=== PATIENT | male | born 1940 | race African-American/Black ===

== ENCOUNTER 2025-01-03 17:29 | Inpatient (IN) | payer MEDICARE, OTHER, BC ==
[~2025-01-03] VITALS: Ht 177.8 cm; Wt 1.2 kg
[2025-01-03] MEDS: IPRATROPIUM BROMIDE 0.5 MG/2.5 ML NEB SOLUTION NEB ONE (17:47)
[2025-01-03] MEDS: ALBUTEROL SULFATE 2.5 MG/0.5 ML NEB SOLUTION NEB ONE (17:47)
[2025-01-03 17:51] VITALS: PULSE 143; RESP 24; O2SAT 95
[2025-01-03 17:52] VITALS: PULSE 143; RESP 28; O2SAT 96
[2025-01-03 17:54] LABS: BASOPHILS % (AUTO) 0.6 % (0.0-2.0); EOSINOPHILS % (AUTO) 7.3 % (1.0-6.0); HEMATOCRIT 48.7 % (41-53); HEMOGLOBIN 15.9 g/dL (13.5-17.5); LYMPHOCYTES # (AUTO) 5.3 K/uL (1.0-4.8); LYMPHOCYTES % (AUTO) 40.8 % (22.0-44.0); MEAN CORPUSCULAR HEMOGLOBIN 25.6 pg (26.0-34.0); MEAN CORPUSCULAR HGB CONC 32.7 G/dL (31.0-37.0); MEAN CORPUSCULAR VOLUME 78 fL (80-100); MONOCYTES # (AUTO) 1.1 K/uL (0.1-1.0); MONOCYTES % (AUTO) 8.5 % (2.0-9.0); NEUTROPHILS # (AUTO) 5.5 K/uL (1.8-7.7); NEUTROPHILS % (AUTO) 42.8 % (40.0-70.0); PLATELET COUNT (AUTO) 199 K/uL (150-450); RED BLOOD CELL COUNT(AUTO) 6.22 MIL/uL (4.50-5.90); RED CELL DISTRIBUTION WIDTH 14.3 % (11.5-14.5); WHITE BLOOD COUNT (AUTO) 12.9 K/uL (4.5-11.0)
[2025-01-03 18:00] LABS: ANION GAP 10 mmol/L (8-16); CALCIUM, TOTAL 8.6 mg/dL (8.8-10.5); CARBON DIOXIDE 28 mmol/L (22-29); CHLORIDE 105 mmol/L (98-107); CREATININE 1.18 mg/dL (0.60-1.30); GLOMERULAR FILTR. RATE CALC > 60 mL/min (>60); GLUCOSE,RANDOM 264 mg/dL (70-110); POTASSIUM 4.3 mmol/L (3.5-5.1); SODIUM SERUM 143 mmol/L (136-145); UREA NITROGEN, BLOOD 18 mg/dL (7-18)
[2025-01-03] MEDS: ETOMIDATE 2 MG/ML 10 ML VIAL IVP ONE (18:05)
[2025-01-03] MEDS: ROCURONIUM BROMIDE 10 MG/ML 5 ML VIAL IVP ONE (18:05)
[2025-01-03 18:07] LABS: CREATINE KINASE, TOTAL ONLY 101 U/L (39-308)
[2025-01-03] MEDS ORDERED: PROPOFOL 1000 MG/ISO-OSM 100 ML ONE (18:09)
[2025-01-03] MEDS ORDERED: IOHEXOL 300 MG/ML 100 ML VIAL ONE ×2 (18:10→23:54)
[2025-01-03 18:12] LABS: B-TYPE NATRIURETIC PEPTIDE 22 pg/mL (0-100)
[2025-01-03 18:14] LABS: TROPONIN I-HIGH SENSITIVITY 24 ng/L (<76)
[2025-01-03] MEDS ORDERED: IOHEXOL 350 MG/ML 100 ML VIAL ONE ×2 (18:14→18:24)
[2025-01-03] MEDS: FUROSEMIDE 40 MG/4 ML VIAL IVP ONE (18:15)
[2025-01-03] MEDS ORDERED: SODIUM CHLORIDE 0.9% 100 ML ONE (18:24)
[2025-01-03] MEDS ORDERED: PROM118S5 PO (18:28)
[2025-01-03] MEDS ORDERED: AMLO5TAB66 PO (18:28)
[2025-01-03] MEDS ORDERED: LISI40TA9 PO (18:28)
[2025-01-03] MEDS ORDERED: LORA10TA7 PO (18:28)
[2025-01-03] MEDS ORDERED: ALBU18HF12 IH (18:28)
[2025-01-03 18:30] LABS: PROTHROMBIN TIME 10.6 SEC (9.4-11.6)
[2025-01-03 18:32] LABS: CHOL/HDL RATIO 3.3 (4.2-7.3)
[2025-01-03] MEDS ORDERED: HYDR25TA2 PO (18:32)
[2025-01-03 18:43] LABS: APPEARANCE,URINE CLEAR (CLEAR); BILIRUBIN,URINE NEGATIVE (NEGATIVE); COLOR,URINE LIGHT YELLOW (YELLOW); GLUCOSE, URINE (UA) 300-500 mg/dL (NEGATIVE); KETONES,URINE NEGATIVE (NEGATIVE); LEUKOCYTE ESTERASE ,URINE NEGATIVE (NEGATIVE); NITRATE,URINE NEGATIVE (NEGATIVE); OCCULT BLOOD,URINE SMALL (NEGATIVE); PROTEIN,URINE 300-600,SEE CONFIRM mg/dL (NEGATIVE); SPECIFIC GRAVITIY, URINE 1.014 (1.003-1.030); UROBILINOGEN,URINE <=1.0 mg/dL (<=1.0)
[2025-01-03 18:53] LABS: SULFOSALICYLIC ACID,URINE 1+ (Negative)
[2025-01-03 18:54] LABS: BACTERIA,URINE Rare /HPF (None Seen); RBC,URINE 0-2 /HPF (0-2); WBC,URINE 0-2 /HPF (0-5)
[2025-01-03 19:00] VITALS: PULSE 143; RESP 18; O2SAT 99
[2025-01-03] MEDS: PROPOFOL 1000 MG/ISO-OSM 100 ML IV PRN (19:15)
[2025-01-03] MEDS: LABETALOL HCL 5 MG/ML 20 ML VIAL IVP ONE (19:42)
[2025-01-03] MEDS ORDERED: NOREPINEPHRINE 8 MG/0.9 % NACL 250 ML IV ONE (19:43)
[2025-01-03 19:48] LABS: ABG BASE EXCESS -4.9 mmol/L (-2.0-3.0); ABG CARBOXYHEMOGLOBIN 0.5 % (0.5-1.5); ABG HCO3 19.7 mmol/L (21.0-28.0); ABG METHEMOGLOBIN 0.9 % (0.0-1.5); ABG OXYGEN CONTENT 23.1 mL/dL (15.0-23.0); ABG OXYGEN SATURATION 99.7 % (94.0-98.0); ABG OXYHEMOGLOBIN 98.3 % (94.0-98.0); ABG PCO2 59 mmHg (32.0-48.0); ABG TOTAL HEMOGLOBIN 16.2 G/dL (13.5-17.5); SOURCE, BLOOD GAS ARTERIAL; TEMPERATURE, FAHRENHEIT, BG 97.8 FAHREN (96.0-98.6)
[2025-01-03] MEDS: NOREPINEPHRINE 8 MG/0.9 % NACL 250 ML IV PRN (20:00)
[2025-01-03] MEDS: ASPIRIN 300 MG RECTAL SUPPOSITORY PR ONE (20:29)
[2025-01-03] MEDS ORDERED: ZOLPIDEM TARTRATE 5 MG TABLET PO PRN (20:30)
[2025-01-03] MEDS ORDERED: HYDROCODONE/ACETAMINOPHEN 5-325 MG TABLET PO PRN (20:30)
[2025-01-03] MEDS ORDERED: NOREPINEPHRINE 8 MG/0.9 % NACL 250 ML IV PRN (20:30)
[2025-01-03] MEDS ORDERED: ONDANSETRON HCL 4 MG/2 ML VIAL IVP PRN (20:30)
[2025-01-03] MEDS ORDERED: MAGNESIUM HYDROXIDE SUSPENSION 30 ML UDCUP PO PRN (20:30)
[2025-01-03] MEDS ORDERED: MORPHINE SULFATE 2 MG/ML SYRINGE IVP PRN (20:30)
[2025-01-03] MEDS ORDERED: MIDAZOLAM HCL 2 MG/2 ML VIAL ONE (20:38)
[2025-01-03] MEDS ORDERED: SODIUM CHLORIDE 0.9% 500 ML IV ONE (20:41)
[2025-01-03 20:59] LABS: TROPONIN I-HIGH SENSITIVITY 208 ng/L (<76)
[2025-01-03] MEDS: GuaiFENesin SR 600 MG ER TABLET PO SCH (21:00)
[2025-01-03] MEDS: BENZONATATE 100 MG CAPSULE PO SCH (21:00)
[2025-01-03] MEDS: DOCUSATE SODIUM 100 MG CAPSULE PO SCH (21:00)
[2025-01-03] MEDS: MIDAZOLAM HCL 2 MG/2 ML VIAL IVP ONE (21:17)
[2025-01-03 21:23] LABS: ABG BASE EXCESS -2.7 mmol/L (-2.0-3.0); ABG CARBOXYHEMOGLOBIN 0.4 % (0.5-1.5); ABG HCO3 21.4 mmol/L (21.0-28.0); ABG METHEMOGLOBIN 0.9 % (0.0-1.5); ABG OXYGEN CONTENT 23.1 mL/dL (15.0-23.0); ABG OXYGEN SATURATION 99.9 % (94.0-98.0); ABG OXYHEMOGLOBIN 98.6 % (94.0-98.0); ABG PCO2 57 mmHg (32.0-48.0); ABG PH 7.251 (7.350-7.450); ABG TOTAL HEMOGLOBIN 16.2 G/dL (13.5-17.5); PO2, ARTERIAL BG 273.6 mmHg (83.0-108.0); SOURCE, BLOOD GAS ARTERIAL; TEMPERATURE, FAHRENHEIT, BG 97.9 FAHREN (96.0-98.6)
[2025-01-03 21:33] LABS: COVID AG,FIA SOURCE NASAL SWAB
[2025-01-03 21:38] LABS: ABG PH 7.211 (7.350-7.450)
[2025-01-03 21:39] LABS: ABG A-A DIFF O2 335.5 mmHg (10-20.0); ALLEN TEST, BLOOD GAS Positive; O2 DEVICE,BLOOD GAS VENT (ROOM AIR); PEEP,BG 5 cm H2O; PO2, ARTERIAL BG 320.1 mmHg (83.0-108.0); SITE, BLOOD GAS LFT RADIAL; VT, ABG 500 ml
[2025-01-03] MEDS: CefTRIAXone 1 GM/DEXTROSE 50 ML IV SCH (21:39)
[2025-01-03 21:40] LABS: ABG A-A DIFF O2 237.9 mmHg (10-20.0); O2 DEVICE,BLOOD GAS VENT (ROOM AIR); PEEP,BG 5 cm H2O; SITE, BLOOD GAS ARTERIAL LINE; VT, ABG 500 ml
[2025-01-03 21:52] LABS: SARS-COV2 (COVID) ANTIGEN,FIA Negative (Negative)
[2025-01-03 21:53] LABS: INFLUENZA TYPE A NEGATIVE FOR TYPE A (NEGATIVE); INFLUENZA TYPE B NEGATIVE FOR TYPE B (NEGATIVE)
[2025-01-03] MEDS: FentaNYL CIT 1000MCG/0.9% NACL 100 ML IV PRN (21:56)
[2025-01-03] MEDS: AZITHROMYCIN 500 MG/NS 250 ML IV SCH (22:22)
[2025-01-03 22:40] VITALS: PULSE 87; RESP 24; O2SAT 97
[2025-01-03] MEDS ORDERED: PHENYLEPHRINE HCL IN 0.9% NACL 400 MCG/10 ML SYRINGE IVP ONE (23:15)
[2025-01-03 23:19] LABS: LACTIC ACID 2.5 mmol/L (0.4-2.0); TROPONIN I-HIGH SENSITIVITY 1427 ng/L (<76)
[2025-01-03] MEDS: PHENYLEPHRINE 200 MG/D5%-WATER 250 ML IV PRN (23:25)
[2025-01-03] MEDS ORDERED: HEPARIN SODIUM 25000 UNITS/D5W 250 ML IV PRN (23:30)
[2025-01-03] MEDS ORDERED: VERAPAMIL HCL 2.5 MG/ML 2 ML VIAL ONE (23:53)
[2025-01-03] MEDS ORDERED: SODIUM BICARBONATE 50 MEQ/50 ML VIAL ONE (23:54)
[2025-01-03] MEDS ORDERED: LIDOCAINE/PF 1% 30 ML VIAL ONE (23:54)
[2025-01-03] MEDS ORDERED: HEPARIN SODIUM 1000 UNITS/NS 1,000 ML ONE (23:54)
[2025-01-03] MEDS ORDERED: NITROGLYCERIN 50 MG/D5% WATER 250 ML ONE (23:54)
[2025-01-04] VITALS (18 sets, daily range): BP systolic 64–189; BP diastolic 59–102; PULSE 24–108; RESP 24; TEMP 98.1–98.9; O2SAT 93–99
[2025-01-04] MEDS ORDERED: HEPARIN SODIUM,PORCINE 5,000 UNITS/ML VIAL SQ SCH
[2025-01-04] MEDS: EPINEPHrine 5 MG in DEXTROSE 5%-WATER 245 ML IV PRN (00:05)
[2025-01-04] MEDS: IOHEXOL 300 MG/ML 100 ML VIAL ICOR ONE (00:56)
[2025-01-04] MEDS: LIDOCAINE 1% 30 ML/SOD BICARB 8.4% 4 ML SQ ONE (00:56)
[2025-01-04] MEDS: HEPARIN SODIUM 1000 UNITS/NS 1,000 ML IARTER ONE (00:57)
[2025-01-04] MEDS: ALBUTEROL SULFATE 2.5 MG/0.5 ML NEB SOLUTION NEB SCH (02:00)
[2025-01-04] MEDS: IPRATROPIUM BROMIDE 0.5 MG/2.5 ML NEB SOLUTION NEB SCH (02:00)
[2025-01-04] MEDS: HEPARIN SODIUM,PORCINE 1,000 UNITS/ML 10 ML VIAL IVP ONE (02:16)
[2025-01-04] MEDS: MethylPREDNISolone SOD SUCC 125 MG/2 ML VIAL IVP SCH (03:00)
[2025-01-04 04:09] LABS: ABG BASE EXCESS -5.1 mmol/L (-2.0-3.0); ABG CARBOXYHEMOGLOBIN 0.4 % (0.5-1.5); ABG METHEMOGLOBIN 0.2 % (0.0-1.5); ABG OXYGEN CONTENT 21.1 mL/dL (15.0-23.0); ABG OXYGEN SATURATION 99.4 % (94.0-98.0); ABG OXYHEMOGLOBIN 98.8 % (94.0-98.0); ABG PCO2 34 mmHg (32.0-48.0); ABG PH 7.391 (7.350-7.450); ABG TOTAL HEMOGLOBIN 14.9 G/dL (13.5-17.5); PO2, ARTERIAL BG 197.4 mmHg (83.0-108.0); SOURCE, BLOOD GAS ARTERIAL; TEMPERATURE, FAHRENHEIT, BG 96.8 FAHREN (96.0-98.6)
[2025-01-04 04:10] LABS: ABG A-A DIFF O2 122.6 mmHg (10-20.0); O2 DEVICE,BLOOD GAS VENT (ROOM AIR); PEEP,BG 5 cm H2O; SITE, BLOOD GAS ARTERIAL LINE; VT, ABG 550 ml
[2025-01-04 04:33] LABS: BASOPHILS % (AUTO) 0.2 % (0.0-2.0); EOSINOPHILS % (AUTO) 0.3 % (1.0-6.0); HEMATOCRIT 42.7 % (41-53); HEMOGLOBIN 14.1 g/dL (13.5-17.5); LYMPHOCYTES # (AUTO) 1.3 K/uL (1.0-4.8); LYMPHOCYTES % (AUTO) 9.9 % (22.0-44.0); MEAN CORPUSCULAR HEMOGLOBIN 25.7 pg (26.0-34.0); MEAN CORPUSCULAR HGB CONC 33.1 G/dL (31.0-37.0); MEAN CORPUSCULAR VOLUME 78 fL (80-100); MONOCYTES # (AUTO) 1.2 K/uL (0.1-1.0); MONOCYTES % (AUTO) 9.2 % (2.0-9.0); NEUTROPHILS # (AUTO) 10.8 K/uL (1.8-7.7); NEUTROPHILS % (AUTO) 80.4 % (40.0-70.0); PLATELET COUNT (AUTO) 211 K/uL (150-450); RED CELL DISTRIBUTION WIDTH 14.6 % (11.5-14.5); WHITE BLOOD COUNT (AUTO) 13.5 K/uL (4.5-11.0)
[2025-01-04 04:51] LABS: ANION GAP 10 mmol/L (8-16); CALCIUM, TOTAL 7.6 mg/dL (8.8-10.5); CARBON DIOXIDE 22 mmol/L (22-29); CHLORIDE 103 mmol/L (98-107); CREATININE 1.73 mg/dL (0.60-1.30); GLOMERULAR FILTR. RATE CALC 46 mL/min (>60); POTASSIUM 5.9 mmol/L (3.5-5.1); SODIUM SERUM 135 mmol/L (136-145); UREA NITROGEN, BLOOD 26 mg/dL (7-18)
[2025-01-04 04:53] LABS: THYROID STIMULATING HORMONE 1.81 uIU/mL (0.36-3.74)
[2025-01-04 05:11] LABS: GLUCOSE,RANDOM 491 mg/dL (70-110)
[2025-01-04 05:12] LABS: TROPONIN I-HIGH SENSITIVITY 1849 ng/L (<76)
[2025-01-04] MEDS ORDERED: DEXTROSE 50%-WATER 25 GM/50 ML SYRINGE IVP PRN (05:30)
[2025-01-04] MEDS: INSULIN LISPRO 100 UNITS/ML SQ PRN (06:34)
[2025-01-04 07:05] LABS: GLUCOMETER DEV NAME(LOC) ICU.S6; GLUCOSE,POINT OF CARE 389 MG/DL (70-110)
[2025-01-04] MEDS: ASPIRIN 81 MG CHEWABLE TABLET PO SCH (08:22)
[2025-01-04] MEDS: PANTOPRAZOLE SODIUM 40 MG DR TABLET PO SCH (08:22)
[2025-01-04 11:55] LABS: GLUCOMETER DEV NAME(LOC) ICU.S6; GLUCOSE,POINT OF CARE 315 MG/DL (70-110)
[2025-01-04] MEDS ORDERED: HEPARIN SODIUM,PORCINE 5,000 UNITS/ML VIAL IVP ONE (12:30)
[2025-01-04] MEDS ORDERED: HEPARIN SODIUM,PORCINE 5,000 UNITS/ML VIAL IVP PRN (12:30)
[2025-01-04 12:57] LABS: BASOPHILS % (AUTO) 0.2 % (0.0-2.0); EOSINOPHILS % (AUTO) 0 % (1.0-6.0); HEMATOCRIT 42.6 % (41-53); LYMPHOCYTES # (AUTO) 0.4 K/uL (1.0-4.8); LYMPHOCYTES % (AUTO) 2.9 % (22.0-44.0); MEAN CORPUSCULAR HEMOGLOBIN 25.5 pg (26.0-34.0); MEAN CORPUSCULAR VOLUME 77 fL (80-100); MONOCYTES # (AUTO) 0.3 K/uL (0.1-1.0); MONOCYTES % (AUTO) 2.1 % (2.0-9.0); NEUTROPHILS # (AUTO) 12.8 K/uL (1.8-7.7); PLATELET COUNT (AUTO) 168 K/uL (150-450); RED BLOOD CELL COUNT(AUTO) 5.51 MIL/uL (4.50-5.90); RED CELL DISTRIBUTION WIDTH 14.4 % (11.5-14.5); WHITE BLOOD COUNT (AUTO) 13.5 K/uL (4.5-11.0)
[2025-01-04 13:01] LABS: NEUTROPHILS % (AUTO) 94.8 % (40.0-70.0); RBC MORPHOLOGY COMMENT ABNORMAL RBC MORPH
[2025-01-04 13:39] LABS: PROTHROMBIN TIME 11.3 SEC (9.4-11.6)
[2025-01-04] MEDS: HEPARIN SODIUM 25000 UNITS/D5W 250 ML IV PRN (14:08)
[2025-01-04] MEDS: PROPOFOL 1000 MG/ISO-OSM 100 ML IV PRN (14:31)
[2025-01-04 14:49] LABS: CREATINE KINASE, TOTAL ONLY 240 U/L (39-308)
[2025-01-04 14:53] LABS: B-TYPE NATRIURETIC PEPTIDE 206 pg/mL (0-100)
[2025-01-04 14:57] LABS: TROPONIN I-HIGH SENSITIVITY 3977 ng/L (<76)
[2025-01-04] MEDS: WATER IV PRN (14:58)
[2025-01-04] MEDS: DEXTROSE 5% IV PRN (14:58)
[2025-01-04] MEDS: SODIUM BICARBONATE IV PRN (14:58)
[2025-01-04 15:13] LABS: ABG A-A DIFF O2 84.7 mmHg (10-20.0); ABG BASE EXCESS -1.3 mmol/L (-2.0-3.0); ABG HCO3 23.7 mmol/L (21.0-28.0); ABG METHEMOGLOBIN 0.2 % (0.0-1.5); ABG OXYGEN CONTENT 19.5 mL/dL (15.0-23.0); ABG OXYGEN SATURATION 96.5 % (94.0-98.0); ABG OXYHEMOGLOBIN 95.3 % (94.0-98.0); ABG PCO2 38 mmHg (32.0-48.0); ABG PH 7.408 (7.350-7.450); ABG TOTAL HEMOGLOBIN 14.5 G/dL (13.5-17.5); PO2, ARTERIAL BG 84.7 mmHg (83.0-108.0); SITE, BLOOD GAS ARTERIAL LINE; SOURCE, BLOOD GAS ARTERIAL; TEMPERATURE, FAHRENHEIT, BG 98.6 FAHREN (96.0-98.6)
[2025-01-04 15:14] LABS: O2 DEVICE,BLOOD GAS VENTILATOR (ROOM AIR); PEEP,BG 5 cm H2O; VT, ABG 550 ml
[2025-01-04 15:15] LABS: BASE EXCESS,VENOUS BLOOD GAS -2.1 (-2.0-3.0); HCO3,VENOUS BLOOD GAS 22.2 (22.0-29.0); PCO2,VENOUS BLOOD GAS 41 (38-54); PH,VENOUS BLOOD GAS 7.371 (7.320-7.430); SOURCE, BLOOD GAS VENOUS; TEMPERATURE, FAHRENHEIT, BG 98.6 FAHREN (96.0-98.6); TOTAL HEMOGLOBIN,VENOUS BGAS 14.4 (13.5-17.5)
[2025-01-04 15:17] LABS: SITE, BLOOD GAS SWAN
[2025-01-04 15:18] LABS: PO2,VENOUS BLOOD GAS 36.2 mmHg (23.0-48.0)
[2025-01-04 15:36] LABS: LACTIC ACID 1.9 mmol/L (0.4-2.0)
[2025-01-04] MEDS: BUMETANIDE 0.25 MG/ML 4 ML VIAL IVP ONE (16:10)
[2025-01-04] MEDS: FentaNYL CIT 1000MCG/0.9% NACL 100 ML IV PRN (16:10)
[2025-01-04] MEDS: HEPARIN SODIUM,PORCINE 5,000 UNITS/ML VIAL IVP PRN (16:11)
[2025-01-04 17:13] LABS: ABG A-A DIFF O2 91.4 mmHg (10-20.0); ABG BASE EXCESS -1.4 mmol/L (-2.0-3.0); ABG CARBOXYHEMOGLOBIN 0.8 % (0.5-1.5); ABG HCO3 23.3 mmol/L (21.0-28.0); ABG METHEMOGLOBIN 0.3 % (0.0-1.5); ABG OXYGEN CONTENT 18.7 mL/dL (15.0-23.0); ABG OXYGEN SATURATION 94.1 % (94.0-98.0); ABG OXYHEMOGLOBIN 93.1 % (94.0-98.0); ABG PCO2 41 mmHg (32.0-48.0); ABG PH 7.378 (7.350-7.450); ABG TOTAL HEMOGLOBIN 14.3 G/dL (13.5-17.5); O2 DEVICE,BLOOD GAS VENTILATOR (ROOM AIR); PO2, ARTERIAL BG 74.1 mmHg (83.0-108.0); SITE, BLOOD GAS ARTERIAL LINE; SOURCE, BLOOD GAS ARTERIAL; TEMPERATURE, FAHRENHEIT, BG 98.6 FAHREN (96.0-98.6)
[2025-01-04 17:14] LABS: PEEP,BG 5 cm H2O; VT, ABG 550 ml
[2025-01-04 17:16] LABS: BASE EXCESS,VENOUS BLOOD GAS -2.9 (-2.0-3.0); HCO3,VENOUS BLOOD GAS 21.5 (22.0-29.0); PCO2,VENOUS BLOOD GAS 42 (38-54); PH,VENOUS BLOOD GAS 7.352 (7.320-7.430); PO2,VENOUS BLOOD GAS 36.1 mmHg (23.0-48.0); SITE, BLOOD GAS SWAN; SOURCE, BLOOD GAS VENOUS; TEMPERATURE, FAHRENHEIT, BG 98.6 FAHREN (96.0-98.6)
[2025-01-04 18:21] LABS: GLUCOMETER DEV NAME(LOC) ICUN.5; GLUCOSE,POINT OF CARE 346 MG/DL (70-110)
[2025-01-04] MEDS: SODIUM ZIRCONIUM CYCLOSILICATE 10 GM POWDER PACKET PO ONE (18:38)
[2025-01-04] MEDS: BUDESONIDE 0.5 MG/2 ML NEB SOLUTION NEB SCH (19:07)
[2025-01-04] MEDS ORDERED: DEXTROSE 5%-WATER 1,000 ML IV ONE (19:51)
[2025-01-04] MEDS ORDERED: SODIUM CHLORIDE 0.9% 250 ML IV ONE (21:15)
[2025-01-05] VITALS (33 sets, daily range): BP systolic 99–130; BP diastolic 56–80; PULSE 64–120; RESP 24; TEMP 97–98.3; O2SAT 93–97
[2025-01-05 02:36] LABS: GLUCOMETER DEV NAME(LOC) ICUN.5; GLUCOSE,POINT OF CARE 305 MG/DL (70-110)
[2025-01-05 04:18] LABS: BASOPHILS % (AUTO) 0.2 % (0.0-2.0); EOSINOPHILS % (AUTO) 0 % (1.0-6.0); HEMATOCRIT 39.5 % (41-53); HEMOGLOBIN 13.1 g/dL (13.5-17.5); LYMPHOCYTES # (AUTO) 0.6 K/uL (1.0-4.8); LYMPHOCYTES % (AUTO) 5.8 % (22.0-44.0); MEAN CORPUSCULAR HEMOGLOBIN 25.6 pg (26.0-34.0); MEAN CORPUSCULAR HGB CONC 33.3 G/dL (31.0-37.0); MEAN CORPUSCULAR VOLUME 77 fL (80-100); MONOCYTES # (AUTO) 0.3 K/uL (0.1-1.0); MONOCYTES % (AUTO) 2.6 % (2.0-9.0); NEUTROPHILS # (AUTO) 9.4 K/uL (1.8-7.7); PLATELET COUNT (AUTO) 127 K/uL (150-450); RED BLOOD CELL COUNT(AUTO) 5.13 MIL/uL (4.50-5.90); RED CELL DISTRIBUTION WIDTH 14.3 % (11.5-14.5); WHITE BLOOD COUNT (AUTO) 10.3 K/uL (4.5-11.0)
[2025-01-05 04:21] LABS: NEUTROPHILS % (AUTO) 91.4 % (40.0-70.0)
[2025-01-05 04:26] LABS: CALCIUM, TOTAL 7.9 mg/dL (8.8-10.5); CREATININE 1.83 mg/dL (0.60-1.30); POTASSIUM 3.8 mmol/L (3.5-5.1)
[2025-01-05 04:47] LABS: RBC MORPHOLOGY COMMENT ABNORMAL RBC MORPH
[2025-01-05 06:46] LABS: GLUCOMETER DEV NAME(LOC) ICU.S6; GLUCOSE,POINT OF CARE 341 MG/DL (70-110)
[2025-01-05 07:41] LABS: ABG A-A DIFF O2 87.8 mmHg (10-20.0); ABG BASE EXCESS -1.4 mmol/L (-2.0-3.0); ABG CARBOXYHEMOGLOBIN 0.4 % (0.5-1.5); ABG HCO3 23.5 mmol/L (21.0-28.0); ABG METHEMOGLOBIN 0.3 % (0.0-1.5); ABG OXYGEN CONTENT 17.9 mL/dL (15.0-23.0); ABG OXYGEN SATURATION 95.5 % (94.0-98.0); ABG OXYHEMOGLOBIN 94.8 % (94.0-98.0); ABG PCO2 39 mmHg (32.0-48.0); ABG TOTAL HEMOGLOBIN 13.4 G/dL (13.5-17.5); PO2, ARTERIAL BG 80.6 mmHg (83.0-108.0); SITE, BLOOD GAS ARTERIAL LINE; SOURCE, BLOOD GAS ARTERIAL; TEMPERATURE, FAHRENHEIT, BG 98.6 FAHREN (96.0-98.6)
[2025-01-05 07:42] LABS: O2 DEVICE,BLOOD GAS VENTILATOR (ROOM AIR); PEEP,BG 5 cm H2O; VT, ABG 550 ml
[2025-01-05 07:44] LABS: BASE EXCESS,VENOUS BLOOD GAS -2.2 (-2.0-3.0); HCO3,VENOUS BLOOD GAS 22.3 (22.0-29.0); PCO2,VENOUS BLOOD GAS 41 (38-54); SITE, BLOOD GAS SWAN; SOURCE, BLOOD GAS VENOUS; TEMPERATURE, FAHRENHEIT, BG 98.6 FAHREN (96.0-98.6); TOTAL HEMOGLOBIN,VENOUS BGAS 13.3 (13.5-17.5)
[2025-01-05 07:45] LABS: PO2,VENOUS BLOOD GAS 39.8 mmHg (23.0-48.0)
[2025-01-05] MEDS ORDERED: SODIUM BICARBONATE 50 MEQ/50 ML VIAL ONE (09:22)
[2025-01-05] MEDS ORDERED: LIDOCAINE/PF 1% 30 ML VIAL ONE (09:22)
[2025-01-05] MEDS ORDERED: DEXTROSE 50%-WATER 25 GM/50 ML SYRINGE IVP PRN (11:30)
[2025-01-05] MEDS: INSULIN LISPRO 100 UNITS/ML SQ PRN (11:54)
[2025-01-05] MEDS: BUMETANIDE 0.25 MG/ML 4 ML VIAL IVP ONE (15:21)
[2025-01-05 16:15] LABS: PROTEIN,URINE RANDOM 27 mg/dL (0-11.9); SODIUM,URINE RANDOM 9 mmol/l (20-110); UREA NITROGEN,URINE RANDOM 446 mg/dL (350-1000)
[2025-01-05 16:21] LABS: APPEARANCE,URINE CLEAR (CLEAR); BILIRUBIN,URINE NEGATIVE (NEGATIVE); COLOR,URINE LIGHT YELLOW (YELLOW); GLUCOSE, URINE (UA) NEGATIVE (NEGATIVE); KETONES,URINE NEGATIVE (NEGATIVE); LEUKOCYTE ESTERASE ,URINE NEGATIVE (NEGATIVE); NITRATE,URINE NEGATIVE (NEGATIVE); OCCULT BLOOD,URINE MODERATE (NEGATIVE); PH,URINE 5.5 (5.0-8.0); PROTEIN,URINE TRACE mg/dL (NEGATIVE); SPECIFIC GRAVITIY, URINE 1.021 (1.003-1.030); UROBILINOGEN,URINE <=1.0 mg/dL (<=1.0)
[2025-01-05 16:32] LABS: BACTERIA,URINE Few /HPF (None Seen); SQUAMOUS EPITHELIAL CELL,UR Few /LPF (None Seen); WBC,URINE 0-2 /HPF (0-5)
[2025-01-05 17:35] LABS: GLUCOMETER DEV NAME(LOC) ICUN.5; GLUCOSE,POINT OF CARE 281 MG/DL (70-110)
[2025-01-05 19:36] LABS: GLUCOMETER DEV NAME(LOC) ICUN.5; GLUCOSE,POINT OF CARE 283 MG/DL (70-110)
[2025-01-05 21:42] LABS: TROPONIN I-HIGH SENSITIVITY 1080 ng/L (<76)
[2025-01-06] VITALS (25 sets, daily range): BP systolic 101–153; BP diastolic 58–92; PULSE 56–103; RESP 24–25; TEMP 97–98.9; O2SAT 9–97
[2025-01-06 02:00] LABS: GLUCOMETER DEV NAME(LOC) ICUN.5; GLUCOSE,POINT OF CARE 306 MG/DL (70-110)
[2025-01-06 06:06] LABS: EOSINOPHILS % (AUTO) 0 % (1.0-6.0); HEMATOCRIT 35.6 % (41-53); LYMPHOCYTES # (AUTO) 0.4 K/uL (1.0-4.8); LYMPHOCYTES % (AUTO) 4.9 % (22.0-44.0); MEAN CORPUSCULAR HEMOGLOBIN 26.2 pg (26.0-34.0); MEAN CORPUSCULAR HGB CONC 33.7 G/dL (31.0-37.0); MEAN CORPUSCULAR VOLUME 78 fL (80-100); MONOCYTES # (AUTO) 0.3 K/uL (0.1-1.0); MONOCYTES % (AUTO) 3.1 % (2.0-9.0); NEUTROPHILS # (AUTO) 7.9 K/uL (1.8-7.7); PLATELET COUNT (AUTO) 115 K/uL (150-450); RED BLOOD CELL COUNT(AUTO) 4.59 MIL/uL (4.50-5.90); RED CELL DISTRIBUTION WIDTH 14.6 % (11.5-14.5); WHITE BLOOD COUNT (AUTO) 8.5 K/uL (4.5-11.0)
[2025-01-06 06:14] LABS: CALCIUM, TOTAL 7.7 mg/dL (8.8-10.5); CREATININE 1.9 mg/dL (0.60-1.30); POTASSIUM 3.9 mmol/L (3.5-5.1)
[2025-01-06 07:44] LABS: RBC MORPHOLOGY COMMENT ABNORMAL RBC MORPH
[2025-01-06 08:16] LABS: GLUCOMETER DEV NAME(LOC) ICUN.5; GLUCOSE,POINT OF CARE 307 MG/DL (70-110)
[2025-01-06 09:21] LABS: BASE EXCESS,VENOUS BLOOD GAS -1.4 (-2.0-3.0); HCO3,VENOUS BLOOD GAS 23.2 (22.0-29.0); PCO2,VENOUS BLOOD GAS 41 (38-54); PH,VENOUS BLOOD GAS 7.379 (7.320-7.430); SITE, BLOOD GAS OTHER; SOURCE, BLOOD GAS VENOUS; TEMPERATURE, FAHRENHEIT, BG 98.4 FAHREN (96.0-98.6); TOTAL HEMOGLOBIN,VENOUS BGAS 13.4 (13.5-17.5)
[2025-01-06 09:26] LABS: PO2,VENOUS BLOOD GAS 63.9 mmHg (23.0-48.0)
[2025-01-06] MEDS: INSULIN GLARGINE,HUM.REC.ANLOG 100 UNITS/ML SQ ONE (12:34)
[2025-01-06 12:45] LABS: GLUCOMETER DEV NAME(LOC) ICUN.5; GLUCOSE,POINT OF CARE 265 MG/DL (70-110)
[2025-01-06] MEDS: METOPROLOL SUCCINATE 25 MG ER TABLET PO SCH (17:32)
[2025-01-06] MEDS: DEXMEDETOMIDINE 400 MCG/NS 100 ML IV PRN (18:45)
[2025-01-06 20:00] LABS: GLUCOMETER DEV NAME(LOC) ICUN.5; GLUCOSE,POINT OF CARE 252 MG/DL (70-110)
[2025-01-06] MEDS ORDERED: SODIUM CHLORIDE 0.9% 250 ML IV ONE (20:25)
[2025-01-07] VITALS (22 sets, daily range): BP systolic 116–174; BP diastolic 69–101; PULSE 54–97; RESP 14–29; TEMP 97.2–99.5; O2SAT 93–99
[2025-01-07 00:36] LABS: GLUCOMETER DEV NAME(LOC) ICUN.5; GLUCOSE,POINT OF CARE 300 MG/DL (70-110)
[2025-01-07 06:08] LABS: EOSINOPHILS % (AUTO) 0 % (1.0-6.0); HEMATOCRIT 38.4 % (41-53); HEMOGLOBIN 12.8 g/dL (13.5-17.5); LYMPHOCYTES # (AUTO) 0.5 K/uL (1.0-4.8); LYMPHOCYTES % (AUTO) 5.7 % (22.0-44.0); MEAN CORPUSCULAR HEMOGLOBIN 25.7 pg (26.0-34.0); MEAN CORPUSCULAR HGB CONC 33.3 G/dL (31.0-37.0); MEAN CORPUSCULAR VOLUME 77 fL (80-100); MONOCYTES # (AUTO) 0.5 K/uL (0.1-1.0); MONOCYTES % (AUTO) 5.1 % (2.0-9.0); NEUTROPHILS # (AUTO) 8.1 K/uL (1.8-7.7); PLATELET COUNT (AUTO) 115 K/uL (150-450); RED BLOOD CELL COUNT(AUTO) 4.97 MIL/uL (4.50-5.90); RED CELL DISTRIBUTION WIDTH 14.6 % (11.5-14.5); WHITE BLOOD COUNT (AUTO) 9.1 K/uL (4.5-11.0)
[2025-01-07 06:21] LABS: GLUCOMETER DEV NAME(LOC) ICUN.5; GLUCOSE,POINT OF CARE 211 MG/DL (70-110)
[2025-01-07 06:25] LABS: NEUTROPHILS % (AUTO) 89.2 % (40.0-70.0)
[2025-01-07 06:28] LABS: CALCIUM, TOTAL 7.9 mg/dL (8.8-10.5); CREATININE 1.55 mg/dL (0.60-1.30); POTASSIUM 3.7 mmol/L (3.5-5.1)
[2025-01-07 06:43] LABS: MAGNESIUM 2.6 mg/dL (1.80-2.40); PHOSPHORUS 4.3 mg/dL (2.5-4.9)
[2025-01-07] MEDS: INSULIN GLARGINE,HUM.REC.ANLOG 100 UNITS/ML SQ SCH (08:13)
[2025-01-07 08:25] LABS: GLUCOMETER DEV NAME(LOC) ICUN.5; GLUCOSE,POINT OF CARE 223 MG/DL (70-110)
[2025-01-07] MEDS: LOSARTAN POTASSIUM 25 MG TABLET PO SCH (11:15)
[2025-01-07] MEDS: ALBUTEROL SULFATE 2.5 MG/0.5 ML NEB SOLUTION NEB PRN (12:19)
[2025-01-07 12:35] LABS: GLUCOMETER DEV NAME(LOC) ICUN.5; GLUCOSE,POINT OF CARE 265 MG/DL (70-110)
[2025-01-07] MEDS: LORazepam 2 MG/ML VIAL IVP PRN ×2 (13:24→19:33)
[2025-01-07] MEDS: IPRATROPIUM BROMIDE 0.5 MG/2.5 ML NEB SOLUTION NEB PRN (15:09)
[2025-01-07] MEDS: MethylPREDNISolone SOD SUCC 40 MG/ML VIAL IVP SCH (16:06)
[2025-01-07 18:05] LABS: GLUCOMETER DEV NAME(LOC) ICUN.5; GLUCOSE,POINT OF CARE 192 MG/DL (70-110)
[2025-01-07] MEDS: LORazepam 2 MG/ML VIAL IVP ONE (21:07)
[2025-01-07] MEDS: HEPARIN SODIUM,PORCINE 5,000 UNITS/ML VIAL SQ SCH (21:10)
[2025-01-08] VITALS (15 sets, daily range): BP systolic 109–168; BP diastolic 72–94; PULSE 62–87; RESP 16–22; TEMP 98.7–100.1; O2SAT 89–99
[2025-01-08 03:56] LABS: GLUCOMETER DEV NAME(LOC) ICU.S6; GLUCOSE,POINT OF CARE 235 MG/DL (70-110)
[2025-01-08 06:58] LABS: BASOPHILS % (AUTO) 0.1 % (0.0-2.0); EOSINOPHILS % (AUTO) 0 % (1.0-6.0); HEMATOCRIT 40.3 % (41-53); HEMOGLOBIN 13.4 g/dL (13.5-17.5); LYMPHOCYTES # (AUTO) 0.3 K/uL (1.0-4.8); LYMPHOCYTES % (AUTO) 4.1 % (22.0-44.0); MEAN CORPUSCULAR HEMOGLOBIN 25.8 pg (26.0-34.0); MEAN CORPUSCULAR HGB CONC 33.3 G/dL (31.0-37.0); MEAN CORPUSCULAR VOLUME 77 fL (80-100); MONOCYTES # (AUTO) 0.6 K/uL (0.1-1.0); MONOCYTES % (AUTO) 7.4 % (2.0-9.0); NEUTROPHILS # (AUTO) 7.3 K/uL (1.8-7.7); PLATELET COUNT (AUTO) 106 K/uL (150-450); RED BLOOD CELL COUNT(AUTO) 5.21 MIL/uL (4.50-5.90); RED CELL DISTRIBUTION WIDTH 14.7 % (11.5-14.5); WHITE BLOOD COUNT (AUTO) 8.3 K/uL (4.5-11.0)
[2025-01-08 07:09] LABS: NEUTROPHILS % (AUTO) 88.4 % (40.0-70.0); RBC MORPHOLOGY COMMENT ABNORMAL RBC MORPH
[2025-01-08 07:10] LABS: ANION GAP 7 mmol/L (8-16); CARBON DIOXIDE 28 mmol/L (22-29); CHLORIDE 116 mmol/L (98-107); CREATININE 1.23 mg/dL (0.60-1.30); GLOMERULAR FILTR. RATE CALC > 60 mL/min (>60); GLUCOSE,RANDOM 224 mg/dL (70-110); POTASSIUM 3.8 mmol/L (3.5-5.1); SODIUM SERUM 151 mmol/L (136-145); UREA NITROGEN, BLOOD 43 mg/dL (7-18)
[2025-01-08 07:40] LABS: GLUCOMETER DEV NAME(LOC) ICU.S6; GLUCOSE,POINT OF CARE 167 MG/DL (70-110)
[2025-01-08 08:11] LABS: GLUCOMETER DEV NAME(LOC) ICU.S6; GLUCOSE,POINT OF CARE 246 MG/DL (70-110)
[2025-01-08] MEDS: HydrALAZINE HCL 20 MG/ML VIAL IVP PRN (10:43)
[2025-01-08] MEDS: DEXTROSE 50%-WATER 25 GM in WATER FOR INJECTION,STERILE 950 ML IV SCH (10:56)
[2025-01-08] MEDS: METOPROLOL TARTRATE 5 MG/5 ML VIAL IVP SCH (11:42)
[2025-01-08 12:06] LABS: GLUCOMETER DEV NAME(LOC) ICU.S6; GLUCOSE,POINT OF CARE 247 MG/DL (70-110)
[2025-01-08] MEDS: BISACODYL 10 MG RECTAL RECTAL SUPPOSITORY PR PRN (16:59)
[2025-01-08] MEDS ORDERED: ACETAMINOPHEN 650 MG RECTAL SUPPOSITORY PR PRN (17:30)
[2025-01-08 20:30] LABS: GLUCOMETER DEV NAME(LOC) ICU.S6; GLUCOSE,POINT OF CARE 145 MG/DL (70-110)
[2025-01-08] MEDS: QUEtiapine FUMARATE 25 MG TABLET PO SCH (20:41)
[2025-01-09] VITALS (16 sets, daily range): BP systolic 101–167; BP diastolic 64–103; PULSE 65–107; RESP 15–30; TEMP 99–101; O2SAT 92–100
[2025-01-09 00:41] LABS: GLUCOMETER DEV NAME(LOC) ICUN.5; GLUCOSE,POINT OF CARE 201 MG/DL (70-110)
[2025-01-09 05:46] LABS: GLUCOMETER DEV NAME(LOC) ICU.S6; GLUCOSE,POINT OF CARE 175 MG/DL (70-110)
[2025-01-09 06:56] LABS: BASOPHILS % (AUTO) 0.2 % (0.0-2.0); EOSINOPHILS % (AUTO) 0 % (1.0-6.0); HEMATOCRIT 44.5 % (41-53); HEMOGLOBIN 14.7 g/dL (13.5-17.5); LYMPHOCYTES # (AUTO) 0.6 K/uL (1.0-4.8); LYMPHOCYTES % (AUTO) 6.2 % (22.0-44.0); MEAN CORPUSCULAR HEMOGLOBIN 25.8 pg (26.0-34.0); MEAN CORPUSCULAR HGB CONC 33.1 G/dL (31.0-37.0); MEAN CORPUSCULAR VOLUME 78 fL (80-100); MONOCYTES # (AUTO) 0.5 K/uL (0.1-1.0); MONOCYTES % (AUTO) 5.5 % (2.0-9.0); NEUTROPHILS # (AUTO) 8.4 K/uL (1.8-7.7); PLATELET COUNT (AUTO) 117 K/uL (150-450); RED CELL DISTRIBUTION WIDTH 14.8 % (11.5-14.5); WHITE BLOOD COUNT (AUTO) 9.5 K/uL (4.5-11.0)
[2025-01-09 07:03] LABS: ANION GAP 8 mmol/L (8-16); CALCIUM, TOTAL 8.4 mg/dL (8.8-10.5); CARBON DIOXIDE 25 mmol/L (22-29); CHLORIDE 118 mmol/L (98-107); CREATININE 1.19 mg/dL (0.60-1.30); GLOMERULAR FILTR. RATE CALC > 60 mL/min (>60); GLUCOSE,RANDOM 200 mg/dL (70-110); POTASSIUM 3.7 mmol/L (3.5-5.1); SODIUM SERUM 151 mmol/L (136-145); UREA NITROGEN, BLOOD 42 mg/dL (7-18)
[2025-01-09 07:12] LABS: NEUTROPHILS % (AUTO) 88.1 % (40.0-70.0)
[2025-01-09 09:11] LABS: GLUCOMETER DEV NAME(LOC) ICU.S6; GLUCOSE,POINT OF CARE 176 MG/DL (70-110)
[2025-01-09] MEDS: DEXTROSE 5%-WATER 1,000 ML IV SCH (14:11)
[2025-01-09] MEDS: ACETAMINOPHEN 325 MG TABLET PO PRN (14:32)
[2025-01-09 15:46] LABS: GLUCOMETER DEV NAME(LOC) ICUN.5; GLUCOSE,POINT OF CARE 217 MG/DL (70-110)
[2025-01-09 17:31] LABS: GLUCOMETER DEV NAME(LOC) ICUN.5; GLUCOSE,POINT OF CARE 258 MG/DL (70-110)
[2025-01-10] VITALS (15 sets, daily range): BP systolic 128–157; BP diastolic 75–107; PULSE 80–109; RESP 10–21; TEMP 97.5–99.4; O2SAT 96–100
[2025-01-10 05:40] LABS: GLUCOMETER DEV NAME(LOC) ICUN.5; GLUCOSE,POINT OF CARE 297 MG/DL (70-110)
[2025-01-10 05:40] LABS: GLUCOMETER DEV NAME(LOC) ICUN.5; GLUCOSE,POINT OF CARE 296 MG/DL (70-110)
[2025-01-10 06:05] LABS: BASOPHILS % (AUTO) 0.1 % (0.0-2.0); EOSINOPHILS % (AUTO) 0 % (1.0-6.0); HEMATOCRIT 45.3 % (41-53); HEMOGLOBIN 14.7 g/dL (13.5-17.5); LYMPHOCYTES # (AUTO) 0.7 K/uL (1.0-4.8); MEAN CORPUSCULAR HEMOGLOBIN 25.4 pg (26.0-34.0); MEAN CORPUSCULAR HGB CONC 32.4 G/dL (31.0-37.0); MEAN CORPUSCULAR VOLUME 78 fL (80-100); MONOCYTES # (AUTO) 0.8 K/uL (0.1-1.0); MONOCYTES % (AUTO) 6.1 % (2.0-9.0); NEUTROPHILS # (AUTO) 12.3 K/uL (1.8-7.7); PLATELET COUNT (AUTO) 158 K/uL (150-450); RED BLOOD CELL COUNT(AUTO) 5.79 MIL/uL (4.50-5.90); RED CELL DISTRIBUTION WIDTH 14.8 % (11.5-14.5); WHITE BLOOD COUNT (AUTO) 13.9 K/uL (4.5-11.0)
[2025-01-10 06:10] LABS: NEUTROPHILS % (AUTO) 88.8 % (40.0-70.0)
[2025-01-10 06:21] LABS: ANION GAP 10 mmol/L (8-16); CALCIUM, TOTAL 8.3 mg/dL (8.8-10.5); CARBON DIOXIDE 23 mmol/L (22-29); CHLORIDE 110 mmol/L (98-107); CREATININE 1.28 mg/dL (0.60-1.30); GLOMERULAR FILTR. RATE CALC > 60 mL/min (>60); GLUCOSE,RANDOM 321 mg/dL (70-110); POTASSIUM 3.8 mmol/L (3.5-5.1); SODIUM SERUM 143 mmol/L (136-145); UREA NITROGEN, BLOOD 36 mg/dL (7-18)
[2025-01-10 09:21] LABS: GLUCOMETER DEV NAME(LOC) ICUN.5; GLUCOSE,POINT OF CARE 267 MG/DL (70-110)
[2025-01-10] MEDS: PredniSONE 20 MG TABLET PO SCH (11:16)
[2025-01-10 11:56] LABS: GLUCOMETER DEV NAME(LOC) ICU.S6; GLUCOSE,POINT OF CARE 336 MG/DL (70-110)
[2025-01-10 18:06] LABS: GLUCOMETER DEV NAME(LOC) ICU.S6; GLUCOSE,POINT OF CARE 341 MG/DL (70-110)
[2025-01-10] MEDS ORDERED: SODIUM CHLORIDE 0.9% 250 ML IV ONE (23:19)
[2025-01-11] VITALS (20 sets, daily range): BP systolic 102–158; BP diastolic 64–103; PULSE 62–127; RESP 16–20; TEMP 97.5–98.2; O2SAT 95–100
[2025-01-11 05:01] LABS: GLUCOMETER DEV NAME(LOC) 5S.2D; GLUCOSE,POINT OF CARE 308 MG/DL (70-110)
[2025-01-11] MEDS: METOPROLOL SUCCINATE 25 MG ER TABLET PO SCH (08:33)
[2025-01-11 08:41] LABS: GLUCOMETER DEV NAME(LOC) 5S.2D; GLUCOSE,POINT OF CARE 214 MG/DL (70-110)
[2025-01-11] MEDS: SODIUM CHLORIDE 0.45% 1,000 ML IV ONE (10:33)
[2025-01-11 11:21] LABS: GLUCOMETER DEV NAME(LOC) 5N.1D; GLUCOSE,POINT OF CARE 224 MG/DL (70-110)
[2025-01-11 11:40] LABS: ANION GAP 4 mmol/L (8-16); CALCIUM, TOTAL 7.9 mg/dL (8.8-10.5); CARBON DIOXIDE 27 mmol/L (22-29); CHLORIDE 109 mmol/L (98-107); CREATININE 1.12 mg/dL (0.60-1.30); GLOMERULAR FILTR. RATE CALC > 60 mL/min (>60); GLUCOSE,RANDOM 272 mg/dL (70-110); POTASSIUM 3.9 mmol/L (3.5-5.1); SODIUM SERUM 140 mmol/L (136-145); UREA NITROGEN, BLOOD 29 mg/dL (7-18)
[2025-01-11 12:16] LABS: GLUCOMETER DEV NAME(LOC) 5N.1D; GLUCOSE,POINT OF CARE 249 MG/DL (70-110)
[2025-01-11 17:45] LABS: GLUCOMETER DEV NAME(LOC) 5S.2D; GLUCOSE,POINT OF CARE 306 MG/DL (70-110)
[2025-01-12] VITALS (16 sets, daily range): BP systolic 116–158; BP diastolic 71–108; PULSE 79–105; RESP 16–20; TEMP 97.4–98.2; O2SAT 97–100
[2025-01-12 01:51] LABS: GLUCOMETER DEV NAME(LOC) 5N.1D; GLUCOSE,POINT OF CARE 174 MG/DL (70-110)
[2025-01-12 01:51] LABS: GLUCOMETER DEV NAME(LOC) 5N.1D; GLUCOSE,POINT OF CARE 281 MG/DL (70-110)
[2025-01-12 06:44] LABS: ANION GAP 6 mmol/L (8-16); CALCIUM, TOTAL 7.9 mg/dL (8.8-10.5); CARBON DIOXIDE 27 mmol/L (22-29); CHLORIDE 109 mmol/L (98-107); CREATININE 0.99 mg/dL (0.60-1.30); GLOMERULAR FILTR. RATE CALC > 60 mL/min (>60); GLUCOSE,RANDOM 173 mg/dL (70-110); POTASSIUM 3.3 mmol/L (3.5-5.1); SODIUM SERUM 142 mmol/L (136-145); UREA NITROGEN, BLOOD 24 mg/dL (7-18)
[2025-01-12] MEDS ORDERED: POTASSIUM CHL 10 MEQ/WATER 50 ML IV PRN (07:45)
[2025-01-12] MEDS: carvediloL 6.25 MG TABLET PO SCH (09:25)
[2025-01-12] MEDS: POTASSIUM CHLORIDE 10% 40 MEQ/30 ML LIQUID UDCUP PO PRN (09:26)
[2025-01-12] MEDS: POTASSIUM CHLORIDE 20 MEQ ER TABLET PO ONE (12:00)
[2025-01-12] MEDS: INSULIN LISPRO 100 UNITS/ML SQ ONE (15:09)
[2025-01-12 17:21] LABS: GLUCOMETER DEV NAME(LOC) 5S.2D; GLUCOSE,POINT OF CARE 471 MG/DL (70-110)
[2025-01-12 17:21] LABS: GLUCOMETER DEV NAME(LOC) 5S.2D; GLUCOSE,POINT OF CARE 403 MG/DL (70-110)
[2025-01-12 17:21] LABS: GLUCOMETER DEV NAME(LOC) 5S.2D; GLUCOSE,POINT OF CARE 441 MG/DL (70-110)
[2025-01-12 17:21] LABS: GLUCOMETER DEV NAME(LOC) 5S.2D; GLUCOSE,POINT OF CARE 301 MG/DL (70-110)
[2025-01-12 17:21] LABS: GLUCOMETER DEV NAME(LOC) 5S.2D; GLUCOSE,POINT OF CARE 432 MG/DL (70-110)
[2025-01-12 17:21] LABS: GLUCOMETER DEV NAME(LOC) 5S.2D; GLUCOSE,POINT OF CARE 388 MG/DL (70-110)
[2025-01-12 19:05] LABS: GLUCOMETER DEV NAME(LOC) 5S.2D; GLUCOSE,POINT OF CARE 160 MG/DL (70-110)
[2025-01-13] VITALS (10 sets, daily range): BP systolic 105–143; BP diastolic 66–85; PULSE 76–91; RESP 17–20; TEMP 97.5–98.2; O2SAT 93–100
[2025-01-13 00:51] LABS: GLUCOMETER DEV NAME(LOC) 5S.2D; GLUCOSE,POINT OF CARE 116 MG/DL (70-110)
[2025-01-13 04:45] LABS: GLUCOMETER DEV NAME(LOC) 5S.2D; GLUCOSE,POINT OF CARE 221 MG/DL (70-110)
[2025-01-13 05:15] LABS: GLUCOMETER DEV NAME(LOC) 5S.2D; GLUCOSE,POINT OF CARE 125 MG/DL (70-110)
[2025-01-13 06:54] LABS: ANION GAP 6 mmol/L (8-16); CARBON DIOXIDE 29 mmol/L (22-29); CHLORIDE 108 mmol/L (98-107); CREATININE 0.98 mg/dL (0.60-1.30); GLOMERULAR FILTR. RATE CALC > 60 mL/min (>60); GLUCOSE,RANDOM 118 mg/dL (70-110); POTASSIUM 3.9 mmol/L (3.5-5.1); SODIUM SERUM 143 mmol/L (136-145); UREA NITROGEN, BLOOD 21 mg/dL (7-18)
[2025-01-13] MEDS ORDERED: INSLAN SQ (16:49)
[2025-01-13] MEDS ORDERED: CARV-165 PO (16:50)
[2025-01-13] MEDS ORDERED: QUET25TA PO (16:52)
[2025-01-13] MEDS ORDERED: LOSA-381 PO (16:52)
[2025-01-13] MEDS ORDERED: BENZ-227 PO (16:53)
[2025-01-13] MEDS ORDERED: GUAI600T31 PO (16:54)
[2025-01-13] MEDS ORDERED: PANT-31 PO (16:54)
[2025-01-13] MEDS ORDERED: LEVO750T68 PO (16:55)
[2025-01-13] MEDS ORDERED: [UNRECOGNIZED DRUG - CODE] IH (17:01)
[2025-01-13] MEDS ORDERED: PRED-729 PO (17:06)
[2025-01-13 20:40] LABS: GLUCOMETER DEV NAME(LOC) 5S.2D; GLUCOSE,POINT OF CARE 248 MG/DL (70-110)
[2025-01-13 20:40] LABS: GLUCOMETER DEV NAME(LOC) 5S.2D; GLUCOSE,POINT OF CARE 280 MG/DL (70-110)
== END 2025-01-13 17:39 | disposition home or self-care (01) | DRG 215 ==
LOC: EMS 17:31 → EDH 20:29 → ICU 01-04 02:56 → 5N 01-10 22:20
PROVIDERS: ADMIT Internal Medicine; ATTEND Internal Medicine
PROC: 0BH18EZ Insertion of Endotracheal Airway into Trachea, Via Natural or Artificial Opening Endoscopic (ICD-10-PCS; 2025-01-03)
PROC: 5A1945Z Respiratory Ventilation, 24-96 Consecutive Hours (ICD-10-PCS; 2025-01-03)
PROC: 02HA3RZ Insertion of Short-term External Heart Assist System into Heart, Percutaneous Approach (ICD-10-PCS; principal; 2025-01-04)
PROC: 5A0221D Assistance with Cardiac Output using Impeller Pump, Continuous (ICD-10-PCS; 2025-01-04)
PROC: B2111ZZ Fluoroscopy of Multiple Coronary Arteries using Low Osmolar Contrast (ICD-10-PCS; 2025-01-04)
PROC: 4A023N8 Measurement of Cardiac Sampling and Pressure, Bilateral, Percutaneous Approach (ICD-10-PCS; 2025-01-04)
PROC: B2141ZZ Fluoroscopy of Right Heart using Low Osmolar Contrast (ICD-10-PCS; 2025-01-04)
PROC: 02WAXRZ Revision of Short-term External Heart Assist System in Heart, External Approach (ICD-10-PCS; 2025-01-04)
PROC: 02PA3RZ Removal of Short-term External Heart Assist System from Heart, Percutaneous Approach (ICD-10-PCS; 2025-01-05)
PROC: 05H933Z Insertion of Infusion Device into Right Brachial Vein, Percutaneous Approach (ICD-10-PCS; 2025-01-07)
DX: I21.4 Non-ST elevation (NSTEMI) myocardial infarction (principal); J96.01 Acute respiratory failure with hypoxia; J18.9 Pneumonia, unspecified organism; R57.0 Cardiogenic shock; J96.02 Acute respiratory failure with hypercapnia; G93.40 Encephalopathy, unspecified; E87.0 Hyperosmolality and hypernatremia; J98.11 Atelectasis; N17.9 Acute kidney failure, unspecified; I50.20 Unspecified systolic (congestive) heart failure; Z68.1 Body mass index [BMI] 19.9 or less, adult; I51.81 Takotsubo syndrome; I25.10 Atherosclerotic heart disease of native coronary artery without angina pectoris; E11.22 Type 2 diabetes mellitus with diabetic chronic kidney disease; E87.5 Hyperkalemia; E66.9 Obesity, unspecified; N18.9 Chronic kidney disease, unspecified; E11.65 Type 2 diabetes mellitus with hyperglycemia; D69.6 Thrombocytopenia, unspecified; E87.6 Hypokalemia; Z20.822 Contact with and (suspected) exposure to COVID-19; I27.20 Pulmonary hypertension, unspecified; K44.9 Diaphragmatic hernia without obstruction or gangrene; Z78.1 Physical restraint status; Z87.891 Personal history of nicotine dependence; Z95.5 Presence of coronary angioplasty implant and graft; Z79.82 Long term (current) use of aspirin; Z79.4 Long term (current) use of insulin; Z79.899 Other long term (current) drug therapy; I10 Essential (primary) hypertension
CPT/HCPCS: 31500; 33990; 36245; 36569; 70450; 70496; 70498; 71045; 71250; 76770; 76937; 80048; 80061; 81001; 81002; 82550; 82570; 82805; 82962; 83036; 83605; 83615; 83690; 83735; 83880; 84100; 84132; 84156; 84300; 84443; 84484; 84540; 85025; 85610; 85730; 87040; 87081; 87804; 92526; 92610; 93005; 93306; 93308; 94002; 94003; 94640; 96374; 96375; 97110; 97116; 97163; 97535; 99291; G0480; J0171; J0360; J0456; J0696; J1250; J1644; J1815; J2060; J2250; J2704; J2919; J3010; J3490; J7030; J7040; J7050; J7060; Q9967; 36415-L1; 36415-TC; J7613; Z7610